=== PATIENT | male | born 1945 | race Caucasian/White ===

== ENCOUNTER → 2017-05-27 | Outpatient (CLI) | payer MEDICARE, BC ==
[2017-05-27 09:50] LABS: Appearance,Urine Clear (Clear); Bilirubin,Urine Negative (Negative); Glucose,Urine (UA) Negative (Negative); Ketones,Urine Negative (Negative); Leukocyte Esterase,Urine Negative (Negative); Nitrite,Urine Negative (Negative); PH, Urine 5.5 (5.0-8.0); Protein,Urine Negative (Negative); Specific Gravity,Urine 1.009 (1.001-1.035); UA Billing (MACRO vs. MICRO) CHEM; Urobilinogen,Urine <2.0 mg/dL (<2.0)
[2017-05-27 09:53] LABS: Basophils % (A) 1 %; CH 31.8; CHCM 32.3; Eosinophils # (A) 0.2 k/uL (0-0.7); Eosinophils % (A) 3 %; HCT 45.8 % (39.0-53.0); HGB 14.7 gm/dL (13.0-17.5); Luc # (Auto) 0.11; Luc % (Auto) 2; Lymphocytes # (A) 1.1 k/uL (1.0-4.8); Lymphocytes % (A) 17 %; MCH 31.7 pg (25.0-35.0); MCHC 32.1 g/dL (31.0-37.0); MCV 98.9 fL (80.0-100.0); Mean Platelet Volume 8.4; Monocytes # (A) 0.7 k/uL (0-1.0); Monocytes % (A) 11 %; Neutrophils # (A) 4.3 k/uL (1.3-7.7); Neutrophils % (A) 67 %; RBC 4.63 m/uL (4.30-5.90); RDW 13.2 % (11.5-15.5); WBC 6.4 k/uL (3.8-10.6); WBC (Perox) 6.32
[2017-05-27 10:42] LABS: Calcium 9.7 mg/dL (8.4-10.2); Phosphorous 3.1 mg/dL (2.5-4.5); Potassium 4.5 mmol/L (3.5-5.1); Uric Acid 7.3 mg/dL (3.5-8.5)
[2017-05-27 15:49] LABS: Iron Saturation 14.95 (15.00-50.00)
== END | disposition home or self-care (01) ==
LOC: LABWHC1 08:25
PROVIDERS: ATTEND Nurse Practitioner Family
DX: E55.9 Vitamin D deficiency, unspecified (principal); E21.3 Hyperparathyroidism, unspecified; M10.9 Gout, unspecified; N39.0 Urinary tract infection, site not specified; D63.1 Anemia in chronic kidney disease; N18.3 Chronic kidney disease, stage 3 (moderate)
CPT/HCPCS: 36415; 80048; 81003; 82306; 82728; 83540; 83550; 83735; 83970; 84100; 84550; 85025

== ENCOUNTER → 2019-09-13 | Outpatient (CLI) | payer MEDICARE ==
--- NOTE | 2019-09-13 09:35 | US ---
EXAMINATION TYPE: US kidneys/renal and bladder DATE OF EXAM: 09/13/2019 COMPARISON: US 06/19/2016 CLINICAL HISTORY: N18.3 CKD Stage 3. CKD, known horseshoe kidney EXAM MEASUREMENTS: Right Kidney: 10.7 x 3.3 x 4.1 cm Left Kidney: 13.9 x 4.2 x 3.7 cm Visualized renal horseshoe "band" midline connecting right and left kidneys Right Kidney: Cortical thinning, cyst lateral= 2.3 x 1.3 x 1.8 cm Left Kidney: Cortical thinning, Dilated renal pelvis= 1.9 cm/ Multiple cysts, one complex at mid= 1.5 x 1.5 x 1.4 cm. Not seen on the prior. This does appear to have increased through transmission. Sing le thin septation is seen. Bladder: wnl Bilateral Jets seen: No Incidental finding hepatic cyst= 4.0 x 3.2 cm There is no evidence for hydronephrosis at this point in time. No nephrolithiasis is seen. The urina ry bladder is anechoic. Bilateral ureteral jets are not seen. IMPRESSION: Known horseshoe kidney. Cortical renal thinning of chronic medical renal disease. Bilater al cortical renal cysts with a new mildly complex left renal cyst in comparison to 2016. This measure s 1.5 cm.
== END | disposition home or self-care (01) ==
LOC: RADUSWWP 08:48
PROVIDERS: ATTEND Internal Medicine Nephrology
DX: N28.1 Cyst of kidney, acquired (principal); N18.3 Chronic kidney disease, stage 3 (moderate); N28.89 Other specified disorders of kidney and ureter
CPT/HCPCS: 76770

== ENCOUNTER → 2020-05-15 | Outpatient (CLI) | payer MEDICARE ==
--- NOTE | 2020-05-15 15:02 | US ---
EXAMINATION TYPE: US kidneys/renal and bladder DATE OF EXAM: 05/15/2020 COMPARISON: NONE CLINICAL HISTORY: CKD Stage N18.3. known horseshoe kidney, CKD EXAM MEASUREMENTS: Right Kidney: 10.5 x 4.7 x 4.2 cm Left Kidney: 15.2 x 4.8 x 3.7 cm horseshoe kidneys Right Kidney: multiple cystic areas seen, largest = 1.7 x 1.5 x 1.6cm Left Kidney: elongated left renal with cystic area noted inferiorly = 1.7 x 1.9 x 1.9cm Bladder: wnl There is no evidence for hydronephrosis at this point in time. No nephrolithiasis is seen. No ruben s are identified. The urinary bladder is anechoic. Bilateral ureteral jets are seen. IMPRESSION: Cystic changes as noted above.
== END | disposition home or self-care (01) ==
LOC: RADUSWWP 14:16
PROVIDERS: ATTEND Internal Medicine Nephrology
DX: N28.1 Cyst of kidney, acquired (principal)
CPT/HCPCS: 76770

== ENCOUNTER → 2021-03-26 | Outpatient (CLI) | payer MEDICARE ==
[2021-03-26 12:48] LABS: HCT 40.7 % (39.0-53.0); HGB 13.7 gm/dL (13.0-17.5); MCH 33.9 pg (25.0-35.0); MCHC 33.6 g/dL (31.0-37.0); Mean Platelet Volume 8.7; Platelet Count 175 k/uL (150-450); RBC 4.03 m/uL (4.30-5.90); RDW 11.7 % (11.5-15.5); WBC 5.1 k/uL (3.8-10.6)
[2021-03-26 13:09] LABS: Potassium 4.6 mmol/L (3.5-5.1)
== END | disposition home or self-care (01) ==
LOC: LABPAT 12:01
PROVIDERS: ATTEND Internal Medicine Interventional Cardiology
DX: Z01.812 Encounter for preprocedural laboratory examination (principal)
CPT/HCPCS: 36415; 80051; 82565; 84520; 85027

== ENCOUNTER 2021-04-04 08:02 | Day surgery (SDC) | payer MEDICARE ==
[2021-04-03 09:52] VITALS: BMI 28.1
[~2021-04-04 08:02] MED LIST: ALPRAZolam 0.25 MG TAB PO PRN; ALPRAZolam 0.5 MG TAB PO PRN; ASPIRIN 325 MG TAB PO STA; ATORVASTATIN 80 MG TAB PO STA; HEPARIN SODIUM,PORCINE 10,000 UNIT in SODIUM CHLORIDE 0.9% 1,000 ML IRRIGATION PRN; HEPARIN SODIUM,PORCINE 2,500 UNIT in SODIUM CHLORIDE 0.9% 250 ML IRRIGATION PRN; NITROGLYCERIN SL TABS 0.4 MG TAB SUBLINGUAL PRN; SODIUM CHLORIDE 0.9% 1,000 ML in EMPTY BAG 1 BAG IV ONE
[2021-04-04 08:32] VITALS: RESP 18; TEMP 97.5
[2021-04-04 09:39] LABS: Calcium 8.9 mg/dL (8.4-10.2); Potassium 3.9 mmol/L (3.5-5.1)
[2021-04-04] MEDS ORDERED: LIDOCAINE 1% INJ 10MG/ML (20 ML MDV) ONE (09:47)
[2021-04-04] MEDS ORDERED: VERAPAMIL 2.5 MG/ML 2 ML AMP ONE (09:47)
[2021-04-04] MEDS ORDERED: HEPARIN SODIUM 1,000 UN/ML (10ML VL) ONE (09:50)
[2021-04-04] MEDS ORDERED: MIDAZOLAM 2 MG/2 ML VIAL IV ONE (10:18)
[2021-04-04] MEDS ORDERED: LIDOCAINE 1% INJ 10MG/ML (20 ML MDV) SQ ONE (10:20)
[2021-04-04] MEDS ORDERED: VERAPAMIL SYRINGE (5 MG/10 ML) INTRAARTER ONE (10:22)
[2021-04-04] MEDS ORDERED: HEPARIN SODIUM 1,000 UN/ML (10ML VL) IV ONE (10:28)
[2021-04-04] MEDS ORDERED: IOPAMIDOL-370 100ML BTL INJ ONE (10:44)
--- NOTE | 2021-04-04 13:11 | CC ---
CARDIAC CATHETERIZATION REPORT DATE OF SERVICE: 04/04/2021 PROCEDURE: Left heart catheterization and coronary angiography. PERFORMED BY: Dr. Sadie Mcginnis. Moderate conscious sedation time was 26 minutes. Patient was administered Versed. Oxygen saturation, hemodynamics and EKG were monitored closely. CLINICAL INFORMATION: Mr. Keyur Garcia is a 75-year-old gentleman with a history of an inferior NC in 2008 followed by stenting of circumflex and circumflex marginal. Subsequently I performed mid LAD stenting also on this patient with a 2.5 caliber Xience stent. This was performed in 2009. Since then, he did well but lately he has exertional chest pain, shortness of breath and abnormal stress test. He was advised cardiac cath after due discussion. Risks, benefits, options, rationale were explained. PROCEDURE NOTE: Under local anesthesia and strict aseptic precautions, a 6-Guyanese introducer was placed in the right radial artery. Using a standard JL 3.5 and JR4 catheters I performed coronary angiography and the same right catheter was used to check LV pressure but LV gram was not performed. The left foot end-diastolic pressure was about 18 mmHg and there was no gradient across aortic valve. CORONARY ANGIOGRAPHY FINDINGS: RIGHT CORONARY ARTERY: Technically a codominant vessel. No significant disease. Has minor irregularities and distally bifurcates into PDA and PLV, both of which are small in caliber and distribution. This is a codominant, relatively disease free vessel. PDA seems to be larger than PLV which is quite small. RCA has no significant disease other than minor irregularities. There is a good-sized conus branch that comes off proximally. LEFT MAIN CORONARY ARTERY: Long patent vessel with about a 15% narrowing distally and bifurcates into LAD and circumflex. LEFT ANTERIOR DESCENDING CORONARY ARTERY: Good caliber vessel extends along the anterior wall, supplies a sizable amount of myocardium. Gives off septal and diagonal branches. At the junction of middle and distal one third, there is a stent in the LAD that is widely patent with good flow. No significant disease other than minor irregularities of about 35-40 percent in the LAD which is a large distribution fair caliber vessel. LEFT POSTERIOR CIRCUMFLEX CORONARY ARTERY: This vessel is a codominant, probably dominant vessel that gives off a high first obtuse marginal branch and then continues in the AV groove and gives off distal posterolateral and PDA branches. The first obtuse marginal was stented and the stented vessel is widely patent. There is about 35% narrowing within the stent of the first obtuse marginal. Mid circumflex stent after the obtuse marginal is widely patent with less than 10% narrowing. The distal branches of circumflex have minor irregularities but no significant disease. LEFT VENTRICULOGRAM: Not performed. FINAL IMPRESSION: This patient has elevated filling pressures. No gradient across aortic valve. He has a left dominant system. The right is probably codominant or nondominant, has minor irregularities. Circumflex in the midportion as well as in the first OM has stents which are both patent with good flow. Mid/distal LAD has a stent which is widely patent. There is about a 35-40 percent narrowing involving the LAD and circumflex system, but no significant disease. RECOMMENDATIONS: Findings were discussed with the patient and . Continued medical therapy with risk factor modification advised. The patient will be discharged today and I will see him in the office within a week. MMODL / IJN: [id number] /
[2021-04-04 16:03] VITALS: BP 108/56; PULSE 66
== END 2021-04-04 16:03 | disposition home or self-care (01) ==
LOC: CATHCVL 08:02
PROVIDERS: ATTEND Internal Medicine Interventional Cardiology
DX: I25.110 Atherosclerotic heart disease of native coronary artery with unstable angina pectoris (principal); I10 Essential (primary) hypertension; R94.39 Abnormal result of other cardiovascular function study; E78.00 Pure hypercholesterolemia, unspecified; Z20.822 Contact with and (suspected) exposure to COVID-19; Z95.5 Presence of coronary angioplasty implant and graft; E78.5 Hyperlipidemia, unspecified; Z79.82 Long term (current) use of aspirin; Z79.899 Other long term (current) drug therapy
CPT/HCPCS: 93458; 80048; 87635; C1769; J2250; J2001; J1644; Q9967

== ENCOUNTER → 2021-04-09 | Outpatient (CLI) | payer MEDICARE ==
--- NOTE | 2021-04-09 15:49 | US ---
EXAMINATION TYPE: US kidneys/renal and bladder DATE OF EXAM: 04/09/2021 COMPARISON: 05/15/2020 CLINICAL HISTORY: 75-year-old male N18.3 stage 3 kidney diease. TECHNIQUE: Multiple sonographic images of the kidneys and bladder are obtained. 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 Largest medial, into band of connecting renal tissue = 4.8 x 4.1 x 3.7 cm Left Kidney: Thinning of renal cortex. Multiple cysts. Largest laterally = 3.0 x 2.4 x 1.9 cm Bladder: Under distention limits evaluation. Bilateral Jets seen: Yes Normal Post Void Residual: Not calculated. Bladder not fully distended. Patient did not feel the ur ge to void. IMPRESSION: 1. Horseshoe kidney. There is renal cortical thinning on both sides suggesting chronic medical renal disease. 2. No hydronephrosis. 3. Bilateral renal cysts, largest measuring 4.8 cm. 4. Underdistention of the bladder limits its evaluation.
== END | disposition home or self-care (01) ==
LOC: RADUSWWP 10:56
PROVIDERS: ATTEND Internal Medicine
DX: N18.30 Chronic kidney disease, stage 3 unspecified (principal); Q63.1 Lobulated, fused and horseshoe kidney; N28.1 Cyst of kidney, acquired
CPT/HCPCS: 76770

== ENCOUNTER → 2022-04-04 | Outpatient (CLI) | payer MEDICARE ==
--- NOTE | 2022-04-05 06:58 | US ---
EXAMINATION TYPE: US kidneys/renal and bladder DATE OF EXAM: 04/04/2022 COMPARISON: US & CT CLINICAL HISTORY: N18.32 CKD STAGE 3. CKD, known horseshoe kidney EXAM MEASUREMENTS: Right Kidney: 11.9 x 4.0 x 5.1 cm Left Kidney: 15.6 x 4.4 x 4.5 cm Incidental finding hepatic cysts Horseshoe kidney redemonstrated with midline ABD images Right Kidney: Cortical thinning, no evidence of hydro, multicystic with largest cyst measured- lower pole= 4.5 x 4.1 x 4.2 cm Left Kidney: Cortical thinning, no evidence of hydro, multicystic within largest cyst measured- mid/l ateral= 2.3 x 1.8 x 1.6 cm Bladder: wnl Bilateral Jets seen: No There is no evidence for hydronephrosis at this point in time. No nephrolithiasis is seen. No ruben s are identified. The urinary bladder is anechoic. Bilateral ureteral jets are seen. IMPRESSION: 1. Findings compatible with the horseshoe kidney. 2. Renal cystic changes as noted.
== END | disposition home or self-care (01) ==
LOC: RADUSWWP 16:15
PROVIDERS: ATTEND Internal Medicine Nephrology
DX: N28.1 Cyst of kidney, acquired (principal); N18.32 Chronic kidney disease, stage 3b
CPT/HCPCS: 76770